=== PATIENT | female | born 1995 | race American Indian/Alaskan Native ===

== ENCOUNTER 2016-07-09 11:30 | Emergency (ER) | payer BC ==
[2016-07-09 11:30] VITALS: BMI 37.0
[2016-07-09 11:55] VITALS: BP 125/88; PULSE 86; RESP 18; TEMP 98.9; O2SAT 98
[2016-07-09] MEDS ORDERED: Apap-Butalbital-Caffeine 325-50-40mg Tab PO STA (11:58)
--- NOTE | 2016-07-09 12:03 | ED PDOC ---
Arrival/HPI - General Chief Complaint: ENT Problem Time Seen by Provider: 07/09/16 11:36 Historian: Patient - History of Present Illness Narrative History of Present Illness (Text): 07/09/16 11:59 Buddy Gunn, a 21 year old female, whose past medical history includes asthma, presents to the emergency department complaining of a headache for the past three days. Patient reports that the pain radiates to her right ear and right upper molar. She notes she does not usually have headaches. She denies any fevers, nausea, vomiting or any other complaints at this time. Time/Duration: < week Symptom Onset: Sudden Symptom Course: Unchanged Activities at Onset: Rest Context: Home Associated Symptoms (Text): none Past Medical History - Provider Review Nursing Documentation Reviewed: Yes - Infectious Disease Hx of Infectious Diseases: None - Cardiac Hx Cardiac Disorders: No - Pulmonary Hx Asthma: Yes - Neurological Hx Neurological Disorder: No - HEENT Hx HEENT Disorder: No - Renal Hx Renal Disorder: No - Endocrine/Metabolic Hx Endocrine Disorders: No - Hematological/Oncological Hx Blood Disorders: No - Integumentary Hx Dermatological Disorder: No - Musculoskeletal/Rheumatological Hx Musculoskeletal Disorders: No - Gastrointestinal Hx Gastrointestinal Disorders: No - Genitourinary/Gynecological Hx Genitourinary Disorders: No - Psychiatric Hx Depression: No Hx Substance Use: No - Past Surgical History Past Surgical History: No Previous - Anesthesia Hx Anesthesia: No Hx Anesthesia Reactions: No Hx Malignant Hyperthermia: No - Suicidal Assessment Feels Threatened In Home Enviroment: No Family/Social History - Physician Review Nursing Documentation Reviewed: Yes Family/Social History: No Known Family HX Smoking Status: Never Smoked Hx Alcohol Use: No Hx Substance Use: No Allergies/Home Meds Allergies/Adverse Reactions: Allergies No Known Allergies Allergy (Verified 07/09/16 11:45) Home Medications: Home Meds Medication Instructions Recorded Confirmed Albuterol HFA [Ventolin HFA 90 2 puff IH [id number] 02/18/16 07/09/16 mcg/actuation (8 g)] Review of Systems - Physician Review All systems were reviewed & negative as marked: Yes - Review of Systems Constitutional: absent: Fevers ENT: Other (right ear and upper molar pain) Gastrointestinal: absent: Nausea, Vomiting Neurological: Headache Physical Exam Vital Signs Reviewed: Yes Vital Signs Temp Pulse Resp BP Pulse Ox 07/09/16 11:47 98.9 F 86 18 125/88 98 07/09/16 11:40 98.9 F 86 20 125/88 100 Temperature: Afebrile Blood Pressure: Normal Pulse: Regular Respiratory Rate: Normal Appearance: Positive for: Well-Appearing, Non-Toxic, Comfortable Pain Distress: None Mental Status: Positive for: Alert and Oriented X 3 - Systems Exam Head: Present: Atraumatic, Normocephalic Pupils: Present: PERRL Extroacular Muscles: Present: EOMI Conjunctiva: Present: Normal Ears: Present: Other (right cerumen impaction; TM mildly opaque) Mouth: Present: Other (tender to palpation right upper molar; cavity) Neck: Present: Normal Range of Motion Respiratory/Chest: Present: Clear to Auscultation, Good Air Exchange. No: Respiratory Distress, Accessory Muscle Use Cardiovascular: Present: Regular Rate and Rhythm, Normal S1, S2. No: Murmurs Abdomen: Present: Normal Bowel Sounds. No: Tenderness, Distention, Peritoneal Signs Back: Present: Normal Inspection Upper Extremity: Present: Normal Inspection. No: Cyanosis, Edema Lower Extremity: Present: Normal Inspection. No: Edema Neurological: Present: GCS=15, CN II-XII Intact, Speech Normal, Motor Func Grossly Intact, Normal Cerebellar Funct, Gait Normal Skin: Present: Warm, Dry, Normal Color. No: Rashes Psychiatric: Present: Alert, Oriented x 3, Normal Insight, Normal Concentration Medical Decision Making ED Course and Treatment: 07/09/16 12:08 Impression: 21 year old female with a headache, right ear and right upper molar pain. Differential Diagnosis include but are not limited to: Plan: -- Amoxil, Fioricet -- Reassess and disposition Prior Visits: Notes and results from previous visits were reviewed. Patient reported on 02/18/16 for evaluation of nonproductive cough and mild chest pain. Progress Notes: Patient requests to go home after given antibiotics. Patient does not want to wait for further observation. Patient is stable for discharge. Patient was instructed to follow up with physician/clinic in 1-2 days or return if symptoms worsen or new concerning symptoms arise. 07/09/16 13:25 - Medication Orders Current Medication Orders: Discontinued Medications Acetaminophen/Butalbital/Caffeine (Fioricet) 1 tab PO STAT STA Stop: 07/09/16 11:59 Last Admin: 07/09/16 12:17 Dose: 1 TAB Amoxicillin (Amoxil 500 Mg Cap) 500 mg PO STAT STA PRN Reason: Protocol Stop: 07/09/16 11:58 Last Admin: 07/09/16 12:17 Dose: 500 MG - Sheaibe Statement The provider has reviewed the documentation as recorded by the Sheaibe Neelam Mccord All medical record entries made by the Scribe were at my direction and personally dictated by me. I have reviewed the chart and agree that the record accurately reflects my personal performance of the history, physical exam, medical decision making, and the department course for this patient. I have also personally directed, reviewed, and agree with the discharge instructions and disposition. Disposition/Present on Arrival - Present on Arrival Any Indicators Present on Arrival: No History of DVT/PE: No History of Uncontrolled Diabetes: No Urinary Catheter: No History of Decub. Ulcer: No History Surgical Site Infection Following: None - Disposition Have Diagnosis and Disposition been Completed?: Yes Diagnosis: Otitis media, Headache, Toothache Disposition: HOME/ ROUTINE Disposition Time: 11:00 Condition: STABLE Discharge Instructions (ExitCare): Dental Caries (ED), Otitis Media (ED), Acute Headache (ED) Additional Instructions: please follow up with your doctor. return to er with worsening symptoms or concerns. Prescriptions: Amoxicillin 500 mg PO TID #21 tablet Acetaminophen/Butalbital/Caf [Fioricet] 1 tab PO Q8 PRN #20 tab PRN Reason: Headache Referrals: [facility] [Outside] - Follow up with primary [facility] [Outside] - Follow up with primary Blu Babcock DMD [Staff Provider] - Follow up with primary Raymundo Garcia MD [Staff Provider] - Follow up with primary PCP,NO [Non-Staff] - Follow up with primary
== END 2016-07-09 12:18 | disposition home or self-care (01) ==
LOC: ED 11:30
DX: R51 Headache (principal); K08.89 Other specified disorders of teeth and supporting structures; H66.90 Otitis media, unspecified, unspecified ear

== ENCOUNTER 2016-08-15 06:42 | Emergency (ER) | payer BC ==
[2016-08-15 06:55] VITALS: BMI 38.9
[2016-08-15] MEDS ORDERED: Oxycodone/Acetaminophen 5/325 mg Tab PO STA (07:24)
--- NOTE | 2016-08-15 07:26 | ED PDOC ---
Arrival/HPI - General Chief Complaint: Headache Time Seen by Provider: 08/15/16 07:11 Historian: Patient - History of Present Illness Narrative History of Present Illness (Text): 08/15/16 07:23 A 21 year old female, whose past medical history includes asthma, presents to the emergency department complaining of a worsening right sided headache for the past month. Patient notes radiating pain down to her right ear and jaw with mild tooth discomfort. Patient reports she was seen 1 month ago for the same complaints and prescribed Amoxicillin and Fioricet, with no relief. Patient notes a sore throat and cough for 2 days but denies any dizziness, weakness, vision changes, photophobia, neck pain, fever, chills, nausea, vomiting, diarrhea, abdominal pain, urinary symptoms, back pain, chest pain, shortness of breath or any other complaints. Patient reports she was unable to follow up with any of the physicians she was referred to in her prior visit. PMD: None Time/Duration: Other (1 month) Symptom Course: Worsening Quality: Other Context: Home Past Medical History - Provider Review Nursing Documentation Reviewed: Yes - Infectious Disease Hx of Infectious Diseases: None - Cardiac Hx Cardiac Disorders: No - Pulmonary Hx Asthma: Yes - Neurological Hx Neurological Disorder: No - HEENT Hx HEENT Disorder: No - Renal Hx Renal Disorder: No - Endocrine/Metabolic Hx Endocrine Disorders: No - Hematological/Oncological Hx Blood Disorders: No - Integumentary Hx Dermatological Disorder: No - Musculoskeletal/Rheumatological Hx Musculoskeletal Disorders: No - Gastrointestinal Hx Gastrointestinal Disorders: No - Genitourinary/Gynecological Hx Genitourinary Disorders: No - Psychiatric Hx Depression: No Hx Substance Use: No - Past Surgical History Past Surgical History: No Previous - Anesthesia Hx Anesthesia: No Hx Anesthesia Reactions: No Hx Malignant Hyperthermia: No - Suicidal Assessment Feels Threatened In Home Enviroment: No Family/Social History - Physician Review Nursing Documentation Reviewed: Yes Family/Social History: No Known Family HX Smoking Status: Never Smoked Hx Alcohol Use: No Hx Substance Use: No Allergies/Home Meds Allergies/Adverse Reactions: Allergies No Known Allergies Allergy (Verified 07/09/16 11:45) Home Medications: Home Meds Medication Instructions Recorded Confirmed Albuterol HFA [Ventolin HFA 90 2 puff IH PRN PRN 08/15/16 08/15/16 mcg/actuation (8 g)] Review of Systems - Physician Review All systems were reviewed & negative as marked: Yes - Review of Systems Constitutional: absent: Fevers, Night Sweats Eyes: absent: Vision Changes, Photophobia ENT: Sore Throat Respiratory: Cough. absent: SOB Cardiovascular: absent: Chest Pain Gastrointestinal: absent: Abdominal Pain, Diarrhea, Nausea, Vomiting Genitourinary Female: absent: Dysuria, Frequency, Hematuria, Urine Output Changes Musculoskeletal: absent: Back Pain, Neck Pain Neurological: Headache (Right sided headache radiating to right ear and jaw with mild tooth discomfort). absent: Dizziness, Focal Weakness Physical Exam - Physical Exam Narrative Physical Exam (Text): Head: Atraumatic. Normocephalic. Eyes: PERRL. EOMI. Conjunctivae are not pale. ENT: Mucous membranes are moist and intact. Oropharynx is clear and symmetric. No pharyngeal erythema, exudates or abscess. No facial swelling but sensitive to palpation in right maxilla jaw. Cerumen noted in right ear but no erythema. Mouth: Cavities noted in right upper and lower molar. Sensitive to palpation in right lower molar. No gingival edema. Neck: Supple. Full ROM. No JVD. No lymphadenopathy. Cardiovascular: Regular rate. Regular rhythm. No murmurs, rubs, or gallops. Distal pulses are 2+ and symmetric. Pulmonary/Chest: No evidence of respiratory distress. Clear to auscultation bilaterally. No wheezing, rales or rhonchi. Neurological: Alert, awake, and oriented to person, place, time, and situation. Normal speech. Psychiatric: Good eye contact. Normal interaction, affect, and behavior. Vital Signs Reviewed: Yes Vital Signs Temp Pulse Resp BP Pulse Ox 08/15/16 06:57 98.6 F 72 18 142/88 99 Temperature: Afebrile Blood Pressure: Normal Pulse: Regular Respiratory Rate: Normal Appearance: Positive for: Well-Appearing, Non-Toxic, Comfortable Pain Distress: None Mental Status: Positive for: Alert and Oriented X 3 Medical Decision Making ED Course and Treatment: 08/15/16 07:23 Impression: A 21 year old female with a worsening right sided headache Differential Diagnosis included but are not limited to: Referred dental pain vs. Dental abscess vs. Migraine headache Plan: -- Head CT, due to worsening headache and not responding to outpatient treatment -- Maxillofacial CT -- Percocet -- Reassess and disposition Prior Visits: Notes and results from previous visits were reviewed. Patient last seen in the ED on 07/09/16 for Otitis media, Headache, Toothache. Progress Notes: Report Date : 08/15/2016 07:54:51 PROCEDURE: CT HEAD WITHOUT CONTRAST. Dictator : Curtis Hou MD IMPRESSION: No intracranial mass, hemorrhage or evidence of acute infarct. Unremarkable head CT examination. Report Date : 08/15/2016 08:12:21 PROCEDURE: CT MAXILLOFACIAL BONES WITHOUT CONTRAST Dictator : Juan Coats MD IMPRESSION: Periapical lucency which breaks through the cortex of the alveolar ridge on the right side. Findings consistent with a dental abscess. There are no adjacent inflammatory changes. 08/15/16 08:35 On re-examination, patient feels better and is in no acute distress. Pain controlled, no neurological deficits or facial edema. CT findings reviewed with patient. I have discussed the plan with the patient, who expresses understanding. Patient in agreement with plan to be discharged home. Patient is stable for discharge. Patient was instructed to follow up immediately with dentist or return if symptoms worsen, she develops a fever or new concerning symptoms arise. - RAD Interpretation Radiology Orders: 08/15/16 07:24 HEAD W/O CONTRAST [CT] Stat 08/15/16 07:25 MAXILLOFACIAL W/O CONTRAST [CT] Stat - Medication Orders Current Medication Orders: Discontinued Medications Oxycodone/Acetaminophen (Percocet 5/325 Mg Tab) 1 tab PO STAT STA Stop: 08/15/16 07:25 Last Admin: 08/15/16 07:30 Dose: 1 tab - Scribe Statement The provider has reviewed the documentation as recorded by the Sofiya Jaime Provider Scribe Attestation: All medical record entries made by the Scribe were at my direction and personally dictated by me. I have reviewed the chart and agree that the record accurately reflects my personal performance of the history, physical exam, medical decision making, and the department course for this patient. I have also personally directed, reviewed, and agree with the discharge instructions and disposition. Disposition/Present on Arrival - Present on Arrival Any Indicators Present on Arrival: No History of DVT/PE: No History of Uncontrolled Diabetes: No Urinary Catheter: No History of Decub. Ulcer: No History Surgical Site Infection Following: None - Disposition Have Diagnosis and Disposition been Completed?: Yes Diagnosis: Dental abscess Disposition: HOME/ ROUTINE Disposition Time: 08:35 Patient Plan: Discharge Condition: GOOD Discharge Instructions (ExitCare): Dental Abscess (ED) Additional Instructions: Follow-up with your dentist as directed as soon as possible in the next day. For any facial swelling, visual symptoms, fevers, difficulty swallowing, numbness or weakness, chest pain or shortness of breath, persistent or worsening of symptoms, get rechecked. Take pain medication as directed (Percocet) use with caution as may cause drowsiness. Take antibiotic as directed. Prescriptions: Amoxicillin/Clavulanate [Augmentin 875 MG-125 MG] 1 tab PO BID #20 tab oxyCODONE/Acetaminophen [Percocet 5/325 mg Tab] 1 ea PO Q6 PRN #10 tab PRN Reason: severe pain Referrals: Blu Babcock DMD [Non-Staff] - Follow up with primary [facility] [Outside] - Follow up with primary [facility] [Outside] - Follow up with primary
--- NOTE | 2016-08-15 07:57 | CT ---
PROCEDURE: CT HEAD WITHOUT CONTRAST. HISTORY: persistent right sided headache COMPARISON: None available. TECHNIQUE: Axial computed tomography images were obtained through the head/brain without intravenous contrast. Radiation dose: Total exam DLP = 629.06 mGy-cm. This CT exam was performed using one or more of the following dose reduction techniques: Automated exposure control, adjustment of the mA and/or kV according to patient size, and/or use of iterative reconstruction technique. FINDINGS: HEMORRHAGE: No intracranial hemorrhage. BRAIN: No mass effect or edema. No atrophy or chronic microvascular ischemic changes. VENTRICLES: Unremarkable. No hydrocephalus. CALVARIUM: Unremarkable. PARANASAL SINUSES: Unremarkable as visualized. No significant inflammatory changes. MASTOID AIR CELLS: Unremarkable as visualized. No inflammatory changes. OTHER FINDINGS: None. IMPRESSION: No intracranial mass, hemorrhage or evidence of acute infarct. Unremarkable head CT examination.
--- NOTE | 2016-08-15 08:14 | CT ---
PROCEDURE: CT MAXILLOFACIAL BONES WITHOUT CONTRAST HISTORY: right sided facial pain COMPARISON: None TECHNIQUE: Contiguous axial CT images of the maxillofacial bones were obtained. Coronal and sagittal reformats were generated. Radiation dose: Total exam DLP = 619 mGy-cm. This CT exam was performed using one or more of the following dose reduction techniques: Automated exposure control, adjustment of the mA and/or kV according to patient size, and/or use of iterative reconstruction technique. FINDINGS: NASAL BONES: Unremarkable. ORBITS: Unremarkable. PARANASAL SINUSES/ MASTOIDS: Clear. MAXILLA: There is a periapical lucency on the right side which breaks through the cortex of the alveolar ridge. This can be seen on coronal image 60 and axial image 61 of series 2. There are no adjacent inflammatory changes MANDIBLE/ TEMPOROMANDIBULAR JOINTS: Unremarkable. SKULL BASE: Unremarkable. TEMPORAL BONES: Middle ears and mastoid grossly unremarkable. OTHER FINDINGS: None. IMPRESSION: Periapical lucency which breaks through the cortex of the alveolar ridge on the right side. Findings consistent with a dental abscess. There are no adjacent inflammatory changes.
[2016-08-15 08:50] VITALS: BP 120/80; PULSE 73; RESP 16; TEMP 98.2; O2SAT 98
== END 2016-08-15 08:53 | disposition home or self-care (01) ==
LOC: ED 06:42
DX: K04.7 Periapical abscess without sinus (principal)

== ENCOUNTER 2017-04-16 08:32 | Emergency (ER) | payer BC ==
[2017-04-16 08:32] VITALS: BMI 38.9
[2017-04-16 08:52] VITALS: TEMP 97.9
--- NOTE | 2017-04-16 09:09 | ED PDOC ---
Arrival/HPI - General Chief Complaint: ENT Problem Time Seen by Provider: 04/16/17 09:08 Historian: Patient - History of Present Illness Narrative History of Present Illness (Text): 04/16/17 09:09 21 y/o female, pmh including asthma, nkda, c/o nasal congestion/rt ear pain and throat pain x 2 days with no recent traveling. Nasal congestion, associated with sinus congestion, rt. ear pain, throat pain, no fever or chills, no night sweat, no rash, no numbness or tingling, no difficulty swallowing or turning the neck, no chin swelling, no other medical or psychological complaints. Past Medical History - Provider Review Nursing Documentation Reviewed: Yes - Infectious Disease Hx of Infectious Diseases: None - Cardiac Hx Cardiac Disorders: No - Pulmonary Hx Asthma: Yes - Neurological Hx Neurological Disorder: No - HEENT Hx HEENT Disorder: No - Renal Hx Renal Disorder: No - Endocrine/Metabolic Hx Endocrine Disorders: No - Hematological/Oncological Hx Blood Disorders: No - Integumentary Hx Dermatological Disorder: No - Musculoskeletal/Rheumatological Hx Musculoskeletal Disorders: No - Gastrointestinal Hx Gastrointestinal Disorders: No - Genitourinary/Gynecological Hx Genitourinary Disorders: No - Psychiatric Hx Depression: No Hx Substance Use: No - Past Surgical History Past Surgical History: No Previous - Anesthesia Hx Anesthesia: No Hx Anesthesia Reactions: No Hx Malignant Hyperthermia: No - Suicidal Assessment Feels Threatened In Home Enviroment: No Family/Social History - Physician Review Nursing Documentation Reviewed: Yes Family/Social History: Unknown Family HX Smoking Status: Never Smoked Hx Alcohol Use: No Hx Substance Use: No Allergies/Home Meds Allergies/Adverse Reactions: Allergies No Known Allergies Allergy (Verified 04/16/17 08:46) Home Medications: Home Meds Medication Instructions Recorded Confirmed Albuterol HFA [Ventolin HFA 90 2 puff IH PRN PRN 08/15/16 04/16/17 mcg/actuation (8 g)] Albuterol 0.083% [Albuterol 0.083% 1 inh NEB PRN PRN 04/16/17 04/16/17 Inhal Beena (2.5 mg/3 ml) UD] Review of Systems - Review of Systems Constitutional: absent: Fatigue, Fevers Eyes: absent: Vision Changes ENT: Sore Throat, Rhinorrhea, Sinus Congestion, Other (+ear pain) Respiratory: absent: SOB, Cough, Sputum Cardiovascular: absent: Chest Pain Gastrointestinal: absent: Abdominal Pain, Diarrhea, Nausea, Vomiting Musculoskeletal: absent: Arthralgias, Back Pain Skin: absent: Rash, Pruritis Neurological: absent: Headache Psychiatric: absent: Anxiety, Depression Physical Exam Vital Signs Reviewed: Yes Vital Signs Temp Pulse Resp BP Pulse Ox 04/16/17 08:51 97.9 F 71 16 132/83 100 Temperature: Afebrile Blood Pressure: Normal Pulse: Regular Respiratory Rate: Normal Appearance: Positive for: Well-Appearing, Non-Toxic, Comfortable Pain Distress: Mild Mental Status: Positive for: Alert and Oriented X 3 - Systems Exam Head: Present: Atraumatic, Normocephalic Pupils: Present: PERRL Extroacular Muscles: Present: EOMI Conjunctiva: Present: Normal Ears: Present: NORMAL TM, Normal Canal. No: Erythema Mouth: Present: Moist Mucous Membranes Pharnyx: No: ERYTHEMA, EXUDATE, TONSILS ENLARGED, Uvular Deviation, Soft Palate/ Uvular Edema Nose (External): Present: Atraumatic. No: Abrasion, Contusion, Laceration Nose (Internal): Present: Normal Inspection, No Active Bleeding, Rhinorrhea. No : Septal Hematoma, Epistaxis Neck: Present: Normal Range of Motion, Lymphadenopathy (Rt. anterior cervical), Trachea Midline. No: MIDLINE TENDERNESS, Paraspinal Tenderness Respiratory/Chest: Present: Clear to Auscultation, Good Air Exchange. No: Respiratory Distress, Accessory Muscle Use, Wheezes, Decreased Breath Sounds, Rales, Retracting, Rhonchi Cardiovascular: Present: Regular Rate and Rhythm, Normal S1, S2. No: Murmurs Abdomen: Present: Normal Bowel Sounds. No: Tenderness, Distention, Peritoneal Signs Back: Present: Normal Inspection Upper Extremity: Present: Normal Inspection. No: Cyanosis, Edema Lower Extremity: Present: Normal Inspection. No: Edema Neurological: Present: GCS=15, CN II-XII Intact, Speech Normal Skin: Present: Warm, Dry, Normal Color. No: Rashes Psychiatric: Present: Alert, Oriented x 3, Normal Insight, Normal Concentration Medical Decision Making ED Course and Treatment: 04/16/17 09:31 -Rapid flu -Motrin -Observe and reassess 04/16/17 10:54 -Urine hcg negative -Pain resolved. -Discharge home with augmentin, motrin, claritin d24, stay hydrated, follow up with your own pmd and ENT within 2 days, return to the ER for any new or worsening signs or symptoms. - Lab Interpretations Lab Results: Lab Results 04/16/17 10:00: Influenza Typ A,B (EIA) Negative for flu a/b - Medication Orders Current Medication Orders: Discontinued Medications Ibuprofen (Motrin Tab) 800 mg PO STAT STA Stop: 04/16/17 09:48 Last Admin: 04/16/17 09:54 Dose: 800 mg - PA / [employer]PERINTENDENT / Resident Statement / has reviewed & agrees with the documentation as recorded. Disposition/Present on Arrival - Present on Arrival Any Indicators Present on Arrival: No History of DVT/PE: No History of Uncontrolled Diabetes: No Urinary Catheter: No History of Decub. Ulcer: No History Surgical Site Infection Following: None - Disposition Have Diagnosis and Disposition been Completed?: Yes Diagnosis: Cervical lymphadenopathy, URI (upper respiratory infection) Disposition: HOME/ ROUTINE Disposition Time: 09:31 Patient Plan: Discharge Patient Problems: Current Active Problems Problem Status Onset Cervical lymphadenopathy Acute Condition: IMPROVED Additional Instructions: -Discharge home with augmentin, motrin, claritin d24, stay hydrated, follow up with your own pmd and ENT within 2 days, return to the ER for any new or worsening signs or symptoms. Prescriptions: Amoxicillin/Clavulanate [Augmentin 875 MG-125 MG] 1 tab PO BID #20 tab Ibuprofen [Motrin Tab] 600 mg PO QID PRN #24 tab PRN Reason: Other Loratadine/Pseudoephedrine [Claritin-D 24 Hour Tablet] 1 each PO DAILY #5 tab.er.24h Referrals: Cody Pozo, [Primary Care Provider] - Follow up with primary Gilles Molina DO [Staff Provider] - Follow up with primary [facility] [Outside] - Follow up with primary Forms: [employer] (Col[place]ian), WORK NOTE
[2017-04-16 11:31] VITALS: BP 127/80; PULSE 69; RESP 18; O2SAT 98
== END 2017-04-16 11:18 | disposition home or self-care (01) ==
LOC: ED 08:32
DX: J06.9 Acute upper respiratory infection, unspecified (principal); R59.0 Localized enlarged lymph nodes

== ENCOUNTER 2017-05-01 04:06 | Emergency (ER) | payer BC ==
[2017-05-01 04:07] VITALS: BMI 38.9
[2017-05-01 04:18] VITALS: BP 114/75; PULSE 84; RESP 18; TEMP 98.2; O2SAT 100
--- NOTE | 2017-05-01 04:21 | ED PDOC ---
Arrival/HPI - General Chief Complaint: ENT Problem Time Seen by Provider: 05/01/17 04:10 Historian: Patient - History of Present Illness Narrative History of Present Illness (Text): 05/01/17 04:25 A 21 year old female presents to the emergency department complaining of dental pain and sore throat that developed tonight, when patient went to bed, couldn't go to sleep due to pain. Patient reports to using Orajel and Motrin, with no relief. Patient denies any other complaints at this time. Symptom Onset: Sudden Symptom Course: Unchanged Activities at Onset: Rest Context: Home Past Medical History - Provider Review Nursing Documentation Reviewed: Yes - Infectious Disease Hx of Infectious Diseases: None - Cardiac Hx Cardiac Disorders: No - Pulmonary Hx Asthma: Yes - Neurological Hx Neurological Disorder: No - HEENT Hx HEENT Disorder: No - Renal Hx Renal Disorder: No - Endocrine/Metabolic Hx Endocrine Disorders: No - Hematological/Oncological Hx Blood Disorders: No - Integumentary Hx Dermatological Disorder: No - Musculoskeletal/Rheumatological Hx Musculoskeletal Disorders: No - Gastrointestinal Hx Gastrointestinal Disorders: No - Genitourinary/Gynecological Hx Genitourinary Disorders: No - Psychiatric Hx Psychophysiologic Disorder: No Hx Depression: No Hx Substance Use: No - Past Surgical History Past Surgical History: No Previous - Surgical History Hx Eye Surgery: Yes (right) - Anesthesia Hx Anesthesia: No Hx Anesthesia Reactions: No Hx Malignant Hyperthermia: No - Suicidal Assessment Feels Threatened In Home Enviroment: No Family/Social History - Physician Review Nursing Documentation Reviewed: Yes Family/Social History: No Known Family HX Smoking Status: Former Smoker Hx Alcohol Use: No Hx Substance Use: No Allergies/Home Meds Allergies/Adverse Reactions: Allergies No Known Allergies Allergy (Verified 05/01/17 04:17) Home Medications: Home Meds Medication Instructions Recorded Confirmed Albuterol HFA [Ventolin HFA 90 2 puff IH PRN PRN 08/15/16 05/01/17 mcg/actuation (8 g)] Albuterol 0.083% [Albuterol 0.083% 1 inh NEB PRN PRN 04/16/17 05/01/17 Inhal Beena (2.5 mg/3 ml) UD] Review of Systems - Physician Review All systems were reviewed & negative as marked: Yes - Review of Systems Constitutional: absent: Fevers ENT: Sore Throat, Other (dental pain) Physical Exam Vital Signs Reviewed: Yes Vital Signs Temp Pulse Resp BP Pulse Ox 05/01/17 04:13 98.2 F 84 18 114/75 100 Temperature: Afebrile Blood Pressure: Normal Pulse: Regular Respiratory Rate: Normal Appearance: Positive for: Well-Appearing, Non-Toxic, Comfortable Pain Distress: None Mental Status: Positive for: Alert and Oriented X 3 - Systems Exam Head: Present: Atraumatic, Normocephalic Pupils: Present: PERRL Extroacular Muscles: Present: EOMI Conjunctiva: Present: Normal Mouth: Present: Moist Mucous Membranes Neck: Present: Normal Range of Motion Respiratory/Chest: Present: Clear to Auscultation, Good Air Exchange. No: Respiratory Distress, Accessory Muscle Use Cardiovascular: Present: Regular Rate and Rhythm, Normal S1, S2. No: Murmurs Abdomen: Present: Normal Bowel Sounds. No: Tenderness, Distention, Peritoneal Signs Back: Present: Normal Inspection Upper Extremity: Present: Normal Inspection. No: Cyanosis, Edema Lower Extremity: Present: Normal Inspection. No: Edema Neurological: Present: GCS=15, CN II-XII Intact, Speech Normal Skin: Present: Warm, Dry, Normal Color. No: Rashes Psychiatric: Present: Alert, Oriented x 3, Normal Insight, Normal Concentration Medical Decision Making ED Course and Treatment: 05/01/17 04:24 Impression: A 21 year old female with dental pain and sore throat. Plan: -- Reassess and disposition Prior Visits: Notes and results from previous visits were reviewed. Patient was last seen in the emergency department on 04/16/17 for evaluation of nasal congestion, right ear pain and throat pain. 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 - Scribe Statement The provider has reviewed the documentation as recorded by the Sofiya Mccord Provider Scribe Attestation: All medical record entries made by the Sofiya were at my direction and personally dictated by me. I have reviewed the chart and agree that the record accurately reflects my personal performance of the history, physical exam, medical decision making, and the department course for this patient. I have also personally directed, reviewed, and agree with the discharge instructions and disposition. Disposition/Present on Arrival - Present on Arrival Any Indicators Present on Arrival: No History of DVT/PE: No History of Uncontrolled Diabetes: No Urinary Catheter: No History of Decub. Ulcer: No History Surgical Site Infection Following: None - Disposition Have Diagnosis and Disposition been Completed?: Yes Diagnosis: Odontalgia, Pharyngitis Disposition: HOME/ ROUTINE Disposition Time: 04:22 Patient Plan: Discharge Condition: GOOD Discharge Instructions (ExitCare): Pharyngitis (ED), Toothache (ED) Additional Instructions: Fadiaalannaa- Sorry that you are having this problem. Give the antibiotic a good 48 hours to work and follow up with a dentist. Return to us if you have any problems. Yosef- Dr. Aidan Hudson Prescriptions: Amoxicillin 500 mg PO TID #30 tablet oxyCODONE/Acetaminophen [Percocet 5/325 mg Tab] 1 ea PO QID #20 tab MDD 6 Forms: [employer] (Kazakh)
== END 2017-05-01 04:26 | disposition home or self-care (01) ==
LOC: ED 04:06
DX: K08.89 Other specified disorders of teeth and supporting structures (principal); J02.9 Acute pharyngitis, unspecified; Z87.891 Personal history of nicotine dependence

== ENCOUNTER 2017-06-20 23:29 | Emergency (ER) | payer BC ==
[2017-06-20 23:30] VITALS: BMI 38.9
--- NOTE | 2017-06-21 00:19 | ED PDOC ---
Arrival/HPI - General Chief Complaint: Dental Pain Time Seen by Provider: 06/20/17 23:59 Historian: Patient - History of Present Illness Narrative History of Present Illness (Text): 06/21/17 00:14 Pt is a 22 year old female with a past medical history of otalgia and dental abscess that presents today with right upper jaw molar pain and swelling x 2 days. Pt says she saw a dentist many months ago for a root canal but due to insurance issues, could not go back to have cap put on. States the jaw and tooth pain is now intense and keeps her up at night. Tried using Motrin 600 mg but did not give relief at all. Denies fever, chills, chest pain, shortness of breath, nausea, vomiting, and diarrhea or any other complaints 06/21/17 04:07 Time/Duration: < week Symptom Onset: Gradual Symptom Course: Unchanged Quality: Aching Severity Level: 5 Activities at Onset: Rest, Sleeping Context: Home Past Medical History - Provider Review Nursing Documentation Reviewed: Yes - Travel History Have you recently traveled outside [place] w/in the past 3 mons?: No - Infectious Disease Hx of Infectious Diseases: None - Cardiac Hx Cardiac Disorders: No - Pulmonary Hx Asthma: Yes - Neurological Hx Neurological Disorder: No - HEENT Hx HEENT Disorder: No - Renal Hx Renal Disorder: No - Endocrine/Metabolic Hx Endocrine Disorders: No - Hematological/Oncological Hx Blood Disorders: No - Integumentary Hx Dermatological Disorder: No - Musculoskeletal/Rheumatological Hx Musculoskeletal Disorders: No - Gastrointestinal Hx Gastrointestinal Disorders: No - Genitourinary/Gynecological Hx Genitourinary Disorders: No - Psychiatric Hx Psychophysiologic Disorder: No Hx Depression: No Hx Substance Use: No - Past Surgical History Past Surgical History: No Previous - Surgical History Hx Eye Surgery: Yes (right) - Anesthesia Hx Anesthesia: No Hx Anesthesia Reactions: No Hx Malignant Hyperthermia: No - Suicidal Assessment Feels Threatened In Home Enviroment: No Family/Social History - Physician Review Nursing Documentation Reviewed: Yes Family/Social History: Unknown Family HX Smoking Status: Never Smoked Hx Alcohol Use: No Hx Substance Use: No Allergies/Home Meds Allergies/Adverse Reactions: Allergies No Known Allergies Allergy (Verified 06/20/17 23:44) Review of Systems - Review of Systems Constitutional: Normal Eyes: Normal ENT: Other (right upper jaw molar pain ) Respiratory: Normal Cardiovascular: Normal Gastrointestinal: Normal Genitourinary Female: Normal Musculoskeletal: Normal Skin: Normal Neurological: Normal Endocrine: Normal Hemo/Lymphatic: Normal Psychiatric: Normal Physical Exam Vital Signs Reviewed: Yes Vital Signs Temp Pulse Resp BP Pulse Ox 06/21/17 01:00 98.0 F 68 18 136/80 99 06/20/17 23:44 98.3 F 70 18 142/86 100 Temperature: Afebrile Blood Pressure: Normal Pulse: Regular Respiratory Rate: Normal Appearance: Positive for: Well-Appearing, Non-Toxic, Comfortable Pain Distress: Moderate Mental Status: Positive for: Alert and Oriented X 3 - Systems Exam Head: Present: Atraumatic, Normocephalic Pupils: Present: PERRL Extroacular Muscles: Present: EOMI Conjunctiva: Present: Normal Mouth: Present: Moist Mucous Membranes, Normal Tounge, Normal Teeth, Other ( right upper molar pain and swelling) Pharnyx: Present: Normal Neck: Present: Normal Range of Motion Respiratory/Chest: Present: Clear to Auscultation, Good Air Exchange. No: Respiratory Distress, Accessory Muscle Use Cardiovascular: Present: Regular Rate and Rhythm, Normal S1, S2. No: Murmurs Abdomen: Present: Normal Bowel Sounds. No: Tenderness, Distention, Peritoneal Signs Upper Extremity: No: Cyanosis, Edema Lower Extremity: No: Edema Neurological: Present: GCS=15, CN II-XII Intact, Speech Normal Skin: Present: Warm, Dry, Normal Color. No: Rashes Psychiatric: Present: Alert, Oriented x 3, Normal Insight, Normal Concentration Medical Decision Making ED Course and Treatment: 06/21/17 00:19 Impression Pt is a 22 year old female with a past medical history of otalgia and dental abscess that presents today with right upper jaw molar pain and swelling x 2 days. Dental abscess Plan clindamycin 300mg PO Toradol 30 mg IM STAT poc Hcg Progress Note Clindamycin 300mg PO STAT, Toradol IM Pt reports decrease in pain Advised pt to f/u with dentist in next 24hrs to complete procedure Motrin and Tylenol given ; warned of SE and proper use - Medication Orders Current Medication Orders: Discontinued Medications Clindamycin HCl (Cleocin) 300 mg PO STAT STA PRN Reason: Protocol Stop: 06/21/17 00:09 Last Admin: 06/21/17 00:26 Dose: 300 mg Ketorolac Tromethamine (Toradol) 30 mg IM STAT STA Stop: 06/21/17 00:11 Last Admin: 06/21/17 00:24 Dose: 30 mg MAR Pain Assessment Document 06/21/17 00:24 [place] (Rec: 06/21/17 00:25 [id number]) Pain Reassessment Is this a pain reassessment? Yes Sleep Is patient sleeping during reassessment? No Presence of Pain Presence of Pain Yes Location Left, Right or Bilateral Right Upper or Lower Upper IM Administration Charges Document 06/21/17 00:24 MO (Rec: [facility]21[facility]17 00[id number] Charges for Administration # of IM Administrations 1 Disposition/Present on Arrival - Present on Arrival Any Indicators Present on Arrival: Yes History of DVT/PE: No History of Uncontrolled Diabetes: No Urinary Catheter: No History of Decub. Ulcer: No History Surgical Site Infection Following: None - Disposition Have Diagnosis and Disposition been Completed?: Yes Diagnosis: Dental abscess Disposition: HOME/ ROUTINE Disposition Time: 00:29 Patient Plan: Discharge Condition: GOOD Discharge Instructions (ExitCare): Tooth Abscess (DC), Dental Pain (DC) Additional Instructions: Malajia, Please take the antibiotic we have given your along with Tylenol for pain. We recommend that you follow up with your dentist in the next 24 hours to have the tooth assessed and treated. If you have worsening of symptoms, return to the ER. Be Well, DARCY Paige Prescriptions: Acetaminophen [Acetaminophen Extra Strength] 500 mg PO Q6 #20 tablet Clindamycin [Cleocin] 300 mg PO Q8 7 Days #21 cap Ibuprofen [Motrin Tab] 600 mg PO Q6 PRN 5 Days #20 tab PRN Reason: pain/fever Referrals: [id number] [Other] - Follow up with primary Forms: [employer] (Tunisian)
[2017-06-21 11:58] VITALS: BP 136/80; PULSE 68; RESP 18; TEMP 98; O2SAT 99
== END 2017-06-21 01:10 | disposition home or self-care (01) ==
LOC: ED 23:29
DX: K04.7 Periapical abscess without sinus (principal)
CPT/HCPCS: 96372; 99282; J1885

== ENCOUNTER 2017-07-10 19:46 | Emergency (ER) | payer BC ==
[2017-07-10 19:47] VITALS: BMI 38.9
[2017-07-10 20:18] VITALS: BP 124/86; PULSE 84; RESP 18; TEMP 99; O2SAT 99
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
== END 2017-07-10 23:04 | disposition home or self-care (01) ==
LOC: ED 19:46
DX: S39.012A Strain of muscle, fascia and tendon of lower back, initial encounter (principal); S66.911A Strain of unspecified muscle, fascia and tendon at wrist and hand level, right hand, initial encounter; V49.40XA Driver injured in collision with unspecified motor vehicles in traffic accident, initial encounter

== ENCOUNTER 2018-02-04 09:21 | Emergency (ER) | payer BC, MEDICAID ==
[2018-02-04 09:21] VITALS: BMI 38.9
[2018-02-04 09:42] VITALS: RESP 18
--- NOTE | 2018-02-04 10:11 | ED PDOC ---
Arrival/HPI - General Chief Complaint: Groin Pain Time Seen by Provider: 02/04/18 09:22 Historian: Patient - History of Present Illness Narrative History of Present Illness (Text): 02/04/18 10:08 22yr old female presents today with a 2 day history of left-sided groin pain. Patient states that the pain started upon awakening from sleep 2 days ago. Patient denies numbness weakness or tingling in the extremity. She denies abdominal pain. She denies nausea vomiting diarrhea or constipation. Patient states the pain is in the groin of the left hip is worse with movement of the hip. Patient denies any urinary symptoms. Denies vaginal discharge. Patient states she is currently on her menstrual cycle. No medications have been taken for pain at home. Time/Duration: Other (2 days) Symptom Onset: Gradual Quality: Aching Severity Level: Mild Past Medical History - Provider Review Nursing Documentation Reviewed: Yes - Travel History Have you recently traveled outside [place] w/in the past 3 mons?: No - Infectious Disease Hx of Infectious Diseases: None - Reproductive Menopause: No - Cardiac Hx Cardiac Disorders: No - Pulmonary Hx Asthma: Yes - Neurological Hx Neurological Disorder: No - HEENT Hx HEENT Disorder: No - Renal Hx Renal Disorder: No - Endocrine/Metabolic Hx Endocrine Disorders: No - Hematological/Oncological Hx Blood Disorders: No - Integumentary Hx Dermatological Disorder: No - Musculoskeletal/Rheumatological Hx Musculoskeletal Disorders: No - Gastrointestinal Hx Gastrointestinal Disorders: No - Genitourinary/Gynecological Hx Genitourinary Disorders: No - Psychiatric Hx Psychophysiologic Disorder: No Hx Depression: No Hx Substance Use: No - Past Surgical History Past Surgical History: No Previous - Surgical History Hx Eye Surgery: Yes (right) - Anesthesia Hx Anesthesia: No Hx Anesthesia Reactions: No Hx Malignant Hyperthermia: No - Suicidal Assessment Feels Threatened In Home Enviroment: No Family/Social History - Physician Review Nursing Documentation Reviewed: Yes Family/Social History: Unknown Family HX Smoking Status: Never Smoked Hx Alcohol Use: Yes Hx Substance Use: No Allergies/Home Meds Allergies/Adverse Reactions: Allergies No Known Allergies Allergy (Verified 07/10/17 20:18) Review of Systems - Review of Systems Constitutional: absent: Fatigue, Fevers Respiratory: absent: SOB, Cough Cardiovascular: absent: Chest Pain, Palpitations Gastrointestinal: absent: Abdominal Pain, Constipation, Diarrhea, Nausea, Vomiting Genitourinary Female: absent: Dysuria, Frequency, Hematuria, Vaginal Discharge Musculoskeletal: Arthralgias (left hip/groin). absent: Back Pain, Neck Pain Skin: absent: Rash, Pruritis Neurological: absent: Headache, Dizziness Psychiatric: absent: Anxiety, Depression Physical Exam Vital Signs Reviewed: Yes Vital Signs Temp Pulse Resp BP Pulse Ox 02/04/18 09:22 98.5 F 84 18 136/82 98 Temperature: Afebrile Blood Pressure: Normal Pulse: Regular Respiratory Rate: Normal Appearance: Positive for: Well-Appearing, Non-Toxic, Comfortable Pain Distress: None Mental Status: Positive for: Alert and Oriented X 3 - Systems Exam Head: Present: Atraumatic Mouth: Present: Moist Mucous Membranes Neck: Present: Normal Range of Motion Respiratory/Chest: Present: Clear to Auscultation, Good Air Exchange. No: Respiratory Distress, Accessory Muscle Use Cardiovascular: Present: Regular Rate and Rhythm, Normal S1, S2. No: Murmurs Abdomen: Present: Tenderness (minimal left lower pelvic tenderness/ groin tenderness. no edema, no erythema; no ecchymosis. ). No: Distention, Peritoneal Signs, Rebound, Guarding, Hernias Back: Present: Normal Inspection Upper Extremity: Present: Normal Inspection Lower Extremity: Present: Normal Inspection, NORMAL PULSES, Normal ROM, Tenderness (+ ttp over left anterior hip at inguinal region; no edema, no erythema; no ecchymosis; full rom of left hip with pain. ), Neurovascularly Intact, Capillary Refill < 2 s. No: Swelling, Erythema Neurological: Present: Motor Func Grossly Intact, Normal Sensory Function Skin: Present: Warm, Dry, Normal Color. No: Rashes Psychiatric: Present: Alert, Oriented x 3 Medical Decision Making ED Course and Treatment: 02/04/18 10:13 22yr old female with left groin/pelvic pain x 2 days. no trauma or injury. toradol IM UA: + blood, patient currently menstrual cycle. US; FINDINGS: UTERUS: Measures 3 x 7.5 cm. Normal in size and appearance. No fibroid or other mass lesion seen. ENDOMETRIUM: Measures 4.0 mm in diameter. Unremarkable. CERVIX: No cervical abnormality identified. RIGHT OVARY: Measures 2.5 x 3.7 cm. No solid mass. Normal flow. Multiple subcentimeter follicles. LEFT OVARY: Measures 1.1 x 2.8 cm. No solid mass. Normal flow. Multiple subcentimeter follicles. FREE FLUID: No significant free fluid noted. OTHER FINDINGS: None. IMPRESSION: Unremarkable pelvic ultrasound. xray left hip; no fracture pt reassessment; pt feeling better after medications; vitals stable. ambulating with steady gait; Discussed all results in depth with patient advised follow-up with the orthopedist and school resource officer within the next 2 days. Advised return immediately if symptoms worsen persist or if new concerning symptoms develop Patient verbalizes understanding of discharge instructions and need for immediate followup. all aspects of this case were discussed the attending of record. impression; groin pain Motrin every 6 hours as needed for pain Follow-up with the orthopedist within the next 2 days Follow-up with the school resource officer within the next 2 days Return immediately if symptoms worsen persist or if new concerning symptoms develop - RAD Interpretation Radiology Orders: 02/04/18 10:06 Pelvis [PELVIS ULTRASOUND] [US] Stat 02/04/18 10:07 Hip Left [HIP MIN 2V W/ PELVIS LT] [RAD] Stat Disposition/Present on Arrival - Present on Arrival Any Indicators Present on Arrival: No History of DVT/PE: No History of Uncontrolled Diabetes: No Urinary Catheter: No History of Decub. Ulcer: No History Surgical Site Infection Following: None - Disposition Have Diagnosis and Disposition been Completed?: Yes Diagnosis: Groin pain Disposition: HOME/ ROUTINE Disposition Time: 10:15 Patient Plan: Discharge Condition: GOOD Additional Instructions: Motrin every 6 hours as needed for pain Follow-up with the orthopedist within the next 2 days Follow-up with the school resource officer within the next 2 days Return immediately if symptoms worsen persist or if new concerning symptoms develop Prescriptions: Ibuprofen [Motrin] 600 mg PO Q6H PRN #20 tab PRN Reason: pain/fever reduction Referrals: Gretta Lira MD [Staff Provider] - Follow up with primary Mahi Moreland MD [Medical Doctor] - Follow up with primary [facility] [Outside] - Follow up with primary Forms: [employer] ([place]), WORK NOTE
[2018-02-04 10:16] LABS: PH,URINE 6.5 (4.7-8.0); URINE BILIRUBIN NEGATIVE (NEGATIVE); URINE BLOOD LARGE (NEGATIVE); URINE GLUCOSE (UA) NEGATIVE (NEGATIVE); URINE LEUKOCYTE ESTERASE TRACE Leu/uL (NEGATIVE); URINE PROTEIN TRACE mg/dL (<30 mg/dL); URINE UROBILINOGEN 0.2 E.U./dL (<1 E.U./dL)
[2018-02-04 10:17] LABS: URINE APPEARANCE SL CLOUDY (CLEAR); URINE COLOR LIGHT BROWN (YELLOW)
[2018-02-04 10:19] LABS: URINE RBC TNTC /hpf (0-2)
[2018-02-04 10:20] LABS: URINE BACTERIA FEW (NEG)
--- NOTE | 2018-02-04 11:06 | RAD ---
PROCEDURE: Left Hip and pelvis x-ray Radiographs. HISTORY: hip pain COMPARISON: None. FINDINGS: BONES: Normal. No fracture. JOINTS: Normal. SOFT TISSUES: Normal. OTHER FINDINGS: None. IMPRESSION: Negative study
[2018-02-04 12:47] VITALS: BP 110/68; PULSE 81; TEMP 98.2; O2SAT 100
--- NOTE | 2018-02-04 14:21 | US ---
Date of service: 02/04/2018 HISTORY: Left-sided inguinal and pelvic pain. Currently menstruating COMPARISON: None available. TECHNIQUE: Transabdominal only. Real-time technique with 2D, duplex and color Doppler FINDINGS: UTERUS: Measures 3 x 7.5 cm. Normal in size and appearance. No fibroid or other mass lesion seen. ENDOMETRIUM: Measures 4.0 mm in diameter. Unremarkable. CERVIX: No cervical abnormality identified. RIGHT OVARY: Measures 2.5 x 3.7 cm. No solid mass. Normal flow. Multiple subcentimeter follicles. LEFT OVARY: Measures 1.1 x 2.8 cm. No solid mass. Normal flow. Multiple subcentimeter follicles. FREE FLUID: No significant free fluid noted. OTHER FINDINGS: None. IMPRESSION: Unremarkable pelvic ultrasound.
== END 2018-02-04 13:20 | disposition home or self-care (01) ==
LOC: ED 09:21
DX: R10.32 Left lower quadrant pain (principal)
CPT/HCPCS: 73502; 76856; 81001; 87086; 96372; 99282; J1885